=== PATIENT | female | born 1955 | race Asian ===

== ENCOUNTER 2024-07-15 14:04 | Outpatient (RCR) | payer MEDICARE, MEDICAID, SELFPAY | END 2024-08-09 23:59 | disposition home or self-care (01) | LOC: SCTC 14:04 | PROVIDERS: PCP Family Medicine; Referring Provider Family Medicine; Visit Provider Nurse Practitioner Family | DX: C50.412 Malignant neoplasm of upper-outer quadrant of left female breast (principal); Z17.0 Estrogen receptor positive status [ER+]; Z17.21 Progesterone receptor positive status; Z17.32 Human epidermal growth factor receptor 2 negative status; M81.0 Age-related osteoporosis without current pathological fracture; Z79.810 Long term (current) use of selective estrogen receptor modulators (SERMs); E04.2 Nontoxic multinodular goiter; K76.0 Fatty (change of) liver, not elsewhere classified | CPT/HCPCS: 99212; G0463 ==

== ENCOUNTER → 2024-10-15 | Outpatient (CLI) | payer OTHER, SELFPAY ==
[2024-10-15 11:24] LABS: Basophils % (Auto) 1 % (0-2.5); Eosinophils # (Auto) 0.4 Thou/mm3 (0.0-0.5); Eosinophils % (Auto) 5 % (0-10); Hematocrit 43.6 % (36.0-46.0); Hemoglobin 13.9 g/dL (12.0-16.0); Immature Granulocytes % (Auto) 1 % (0-0); Immature Granulocytes Auto 0.08 Thou/mm3 (0.00-0.00); Lymphocytes # (Auto) 1.8 Thou/mm3 (1.0-4.8); Lymphocytes % (Auto) 22 % (10-50); Mean Corpuscular HGB Conc 31.9 g/dl (31.0-37.0); Mean Corpuscular Hemoglobin 27.8 pg (25.0-35.0); Mean Corpuscular Volume 87 fL (80-100); Monocytes # (Auto) 0.5 Thou/mm3 (0.0-0.8); Monocytes % (Auto) 6 % (0-12); Neutrophils # (Auto) 5.6 Thou/mm3 (1.8-7.7); Neutrophils % (Auto) 66 % (37-80); Nucleated Red Blood Cell % 0 /100 WBC (0); Platelet Count 141 Thou/mm3 (140-440); RDW Standard Deviation 41.6 fL (36.4-46.3); White Blood Count 8.4 Thou/mm3 (3.6-11.0)
[2024-10-15 11:47] LABS: Alanine Aminotransferase 27 U/L (10-49); Albumin, Serum 3.8 gm/dL (3.4-4.8); Albumin/Globulin Ratio 1.2 (1.2-2.2); Alkaline Phosphatase 75 U/L (46-116); Anion Gap 10 (7-16); Aspartate Amino Transferase 39 U/L (0-34); BUN/Creatinine Ratio 17 Ratio (12-20); Bilirubin,Total 0.3 mg/dL (0.3-1.2); Blood Urea Nitrogen 15 mg/dL (9-23); Calcium (Corrected) 9.2 mg/dL (8.5-10.1); Carbon Dioxide 31.3 mMol/L (20.0-31.0); Chloride 101 mMol/L (98-107); Creatinine (Component) 0.9 mg/dL (0.6-1.3); Globulin 3.1 gm/dL (2.3-3.5); Glucose 86 mg/dL (74-106); Osmolality,Calculated 282 (275-295); Potassium 3.9 mMol/L (3.4-5.1); Sodium 142 mMol/L (136-145); Total Protein 6.9 gm/dL (5.7-8.2); eGFR > 60 See Note
== END | disposition home or self-care (01) ==
LOC: SCTO 10:24
PROVIDERS: PCP Family Medicine; Referring Provider Nurse Practitioner Family; Visit Provider Nurse Practitioner Family
DX: C50.412 Malignant neoplasm of upper-outer quadrant of left female breast (principal)
CPT/HCPCS: 36415; 80053; 85025

== ENCOUNTER 2024-10-16 09:50 | Outpatient (RCR) | payer OTHER, SELFPAY | END 2024-11-07 23:59 | disposition home or self-care (01) | LOC: SCTC 09:50 | PROVIDERS: PCP Family Medicine; Referring Provider Family Medicine; Visit Provider Internal Medicine Hematology & Oncology | DX: C50.412 Malignant neoplasm of upper-outer quadrant of left female breast (principal); Z17.0 Estrogen receptor positive status [ER+]; Z17.21 Progesterone receptor positive status; Z17.32 Human epidermal growth factor receptor 2 negative status; Z90.12 Acquired absence of left breast and nipple; M81.0 Age-related osteoporosis without current pathological fracture; Z79.810 Long term (current) use of selective estrogen receptor modulators (SERMs); K76.0 Fatty (change of) liver, not elsewhere classified; E04.2 Nontoxic multinodular goiter | CPT/HCPCS: 99212; G0463 ==

== ENCOUNTER → 2024-12-10 | Outpatient (CLI) | payer OTHER, SELFPAY ==
--- NOTE | 2024-12-10 | XR_ITS ---
Examination: Shoulder,left, 3 views Technique: Shoulder AP internal rotation, AP external rotation, Y view shoulder, 3 views Exam date and time :December 10, 2024 1232 hours INDICATIONS: Left shoulder pain beginning 12 years ago. FINDINGS: Significant osteopenia Advanced osteoarthritis glenohumeral joint Orthopedic screws humeral head No acute fracture IMPRESSION: Advanced osteoarthritis glenohumeral joint
== END | disposition home or self-care (01) ==
LOC: CDIM 11:51
PROVIDERS: Referring Provider Orthopaedic Surgery; Visit Provider Orthopaedic Surgery
DX: M19.012 Primary osteoarthritis, left shoulder (principal)
CPT/HCPCS: 73030

== ENCOUNTER 2024-12-30 13:00 | Outpatient (RCR) | payer OTHER, SELFPAY | END 2025-01-07 23:59 | disposition home or self-care (01) | LOC: SCTC 13:00 | PROVIDERS: PCP Family Medicine; Referring Provider Internal Medicine Hematology & Oncology; Visit Provider Internal Medicine Hematology & Oncology | DX: M81.0 Age-related osteoporosis without current pathological fracture (principal); C50.412 Malignant neoplasm of upper-outer quadrant of left female breast; Z17.0 Estrogen receptor positive status [ER+]; Z17.21 Progesterone receptor positive status; Z17.32 Human epidermal growth factor receptor 2 negative status; Z79.810 Long term (current) use of selective estrogen receptor modulators (SERMs) | CPT/HCPCS: 96372; J0897 ==

== ENCOUNTER 2025-02-12 10:39 | Outpatient (RCR) | payer OTHER, SELFPAY ==
--- NOTE | 2025-02-12 16:07 | CTCFLWUP_ITS ---
Patient: PEDRITO FITZPATRICK : 1955 Page 2 of 2 FOLLOW UP NOTE DATE OF SERVICE: 02/12/2025 NAME: PEDRITO FITZPATRICK ACCOUNT: [id number] : 1955 AGE: 69 INTERVAL HISTORY: Chief Complaint Dizziness and spinning sensation after exposure to heat, swelling in leg when walking, request for ultrasound of arm and leg, request for mammogram History of Present Illness Nanette is a patient with a history of breast cancer, non-alcoholic fatty liver disease, and osteopenia, presenting with dizziness and concerns about recent blood pressure and potassium levels. The patient recently attended a high school graduation in [place], where the temperature was 107 degrees. Following the event, she experienced dizziness, particularly when lying down, describing it as a spinning sensation. She has a history of passing out in heat. The patient reports a recent blood pressure reading of 170/95 and mentions having low potassium levels, for which she takes 20 mEq four times a day. She notes that her potassium levels fluctuate, with her last level being 3.1 in December when she received her Prolia injection. She underwent lab work two days ago but has not yet received the results. Regarding her cancer history, Nanette was diagnosed in 2015 and has been on tamoxifen since 2020, having previously been on letrozole from 2015 to 2020. She mentions decreasing platelet counts and expresses concern about potential blood clots associated with tamoxifen use, especially during travel. The patient reports leg swelling when walking and states she needs an ultrasound of her leg. The patient discusses her liver condition, including fatty liver and hepatomegaly. She has been advised to watch her diet, avoid fried foods, and eat small meals to avoid overwhelming her liver. She mentions incorporating spices like turmeric, garlic, and loretta into her diet, as well as using apple cider vinegar for weight loss. Nanette reports a history of spinal fusion in 1989 and current osteopenia in her spine, though she notes it has improved. She takes calcium 1200 mg and vitamin D3 5000 units every other day for bone health. The patient expresses a need for another mammogram and ultrasounds of her arm and leg. Medications and Supplements - Amlodipine - For blood pressure - Potassium 20 mEq four times a day - Potassium level fluctuates - Tamoxifen - Taking since 2020 - Can cause blood clots - Letrozole - Taken from 2015 to 2020 - Prolia - Last injection in December - Calcium 1200 mg - Vitamin D3 5000 units every other day - Extra vitamin D can cause headaches and increase pressure in the head Review of Systems General: Positive for dizziness. HEENT: Positive for eye issues. Cardiovascular: Positive for leg swelling with walking. Neurological: Positive for vertigo, especially when lying down. Objective: Vital Signs - Blood Pressure: 170/95 mmHg Laboratory, Imaging, and Diagnostic Test Results - Date: December 2024 - Potassium: 3.1 mEq/L (low) - Previous results: - Liver imaging (June): Mild hepatomegaly, bilateral cortical scarring - Spine imaging: Osteopenia (improved from previous) - Angiogram: Performed (date not specified) ONCOLOGY HISTORY: History of stage IIa, ER positive, AZ positive, HER-2/kaylyn negative, invasive ductal as well as invasive lobular carcinoma of left breast (11/19/2015). Currently on tamoxifen due to osteoporosis (05/06/2021?). On Prolia. Adjuvant letrozole started (01/27/2016?05/05/2021). Nonalcoholic fatty liver disease with elevated AST and ALT (11/15/2020). DIAGNOSIS: Malignant neoplasm of upper-outer quadrant of left female breast [ICD10] C50.412History of stage IIa, ER positive, AZ positive, HER-2/kaylyn negative, invasive ductal as well as invasive lobular carcinoma of left breast (11/19/2015) DATE OF DIAGNOSIS: 10/05/2015 STAGE/TNM: IIA T2 N0 M0 TREATMENT HISTORY: Care?Plan Start?Date Cycle Day Intent PROLia?60mg?every?6?months 09/22/2021 1 180 Curative?(primary) KCL?40 04/04/2022 1 1 Palliative PROLia?60mg?every?6?months 01/03/2024 1 180 Palliative HISTORY OF PRESENT ILLNESS: Ms. Fitzpatrick is at [facility]. Patient taking tamoxifen, citracal, on prolia every 6 months. Patient is tolerating these medications well without any significant side effects. Patient denies any other concerns or complaints. Patient reports good appetite and energy levels. Patient denies cough chest pain fever weight loss, dysphagia. Denies any weakness, fatigue, leg cramps. HISTORY: May iFtzpatrick is a 69-year-old [place] female with following breast cancer history. 11/19/2015: Patient had left breast partial mastectomy? 12/07/2015: Patient had left breast modified radical mastectomy? 01/27/2016: Patient was started on adjuvant letrozole. She declined adjuvant chemotherapy. Since patient had radical mastectomy adjuvant radiation is not offered. 03/19/2019: AST 60, ALT 170. 09/12/2019: AST 57, ALT 69. 09/08/2020: AST 60, ALT 88, T bili 0.4. Letrozole, glucosamine and turmeric stopped. 10/28/2020: AST 70, ALT 82, T bili 0.5. Advised her to start letrozole. 11/15/2020: CT scan of the abdomen and pelvis with IV contrast? 12/13/2020: T bili 0.7, AST 59, ALT 69, alkaline phosphatase 129. 01/24/2021: Bone density test 05/05/2021: Letrozole discontinued. Patient is started on tamoxifen 20 mg p.o. daily. 05/05/2021: Letrozole was discontinued due to osteoporosis, started on tamoxifen 20 mg, p.o. daily. Prolia was not started since patient states that she just had dental work done. 01/29/2024: CT chest with contrast 02/21/2024: Chest x-ray 02/26/2024: Ultrasound thyroid 03/07/2024: DEXA 03/24/2024: TSH 0.80, T4 is 1.57, T3 is 79 03/25/2024: Ultrasound-guided biopsy of thyroid 05/20/2024: Right breast unilateral mammogram screening OTHER MEDICAL HISTORY/CONDITIONS: F/U with dermatology for skin checks, for sun spots Hypertension FAMILY HISTORY: SOCIAL HISTORY: [employer] HISTORY: MEDICATIONS: 1. allopurinol - 300 mg 1 tab Daily 2. Aspir-81 - 81 mg Daily 3. atorvastatin - 20 mg tab Daily 4. baclofen - 10 mg 1 tab As needed 5. Calcium 600 + D(3) - 600 mg-10 mcg (400 unit) 1 tab Twice a Day 6. chlorthalidone - 25 mg 1 tab Daily 7. colchicine - 0.6 mg 1 tab Daily 8. K-Tab - 20 meq Four times a day 9. losartan - 50 mg 1 tab Daily 10. meclizine - 25 mg 1 tab Three times a day 11. montelukast - 10 mg 1 tab Daily 12. pantoprazole - 20 mg Daily 13. Pataday - 0.1 % 1 drops Twice a Day 14. Refresh Optive - 0.5-0.9 % 1 As directed 15. tamoxifen - 20 mg 1 tab one tab po q daily 16. Vitamin C - 1,000 mg 1 tab Every day before sleep 17. zinc - 1 tab Daily Medications Last Reconciled by Uzma Garvey MA on 02/12/2025 ALLERGIES: latex; betamethasone REVIEW OF SYSTEMS: A complete 14-point review of systems was performed and is negative except as noted in interval history. PHYSICAL EXAMINATION: VITAL SIGNS: Temperature?98.2, B/P?115/80, Oxygen?Saturation?96% Weight?120?lbs PAIN: 0 - No pain GENERAL APPEARANCE: Appears well, in no apparent distress, appropriately interactive. HEENT: Normocephalic, no temporal wasting, normal conjunctiva, no scleral icterus, normal hearing, lips without lesions, neck normal range of motion. CARDIOVASCULAR: Normal heart sounds PULMONARY: Normal respiratory effort, no respiratory distress or use of accessory muscles, speaking in full sentences, no tachypnea. EXTREMITIES: No cyanosis. SKIN: Normal skin appearance. NEUROLOGIC: Alert and oriented x4. PSHYCHIATRIC: Appropriate affect, mood normal, behavior normal, intact thought and speech. LABORATORY DATA: I have personally reviewed and interpreted each of the patient?s relevant lab tests, abnormal findings are below: Date 04/21/24 06/27/24 ??WHITE?BLOOD?COUNT?(Thou/mm3) 11.3?H 12.6?H ??RED?BLOOD?COUNT?(Miln/mm3) 5.05 5.09 ??HEMOGLOBIN?(gm/dl) 13.7 14.2 ??HEMATOCRIT?(%) 41.8 43.5 ??PLATELET?COUNT?(Thou/mm3) 153 126?L ??NEUTROPHILS?%,?AUTO?(%) 67 69 ??LYMPH?%,?AUTO?(%) 21 18 ??NEUTROPHILS,?AUTO?(Thou/mm3) 7.6 8.7?H ??GLUCOSE,RANDOM?(mg/dL) 98 90 ??BLOOD?UREA?NITROGEN?(mg/dL) 20 21 ??CREATININE?(mg/dL) 1.10 1.20 ??SODIUM?(mmol/L) 138 139 ??POTASSIUM?(mmol/L) 3.0?L 3.4 ??CHLORIDE?(mmol/L) 101 100 ??CrCl?(CandG)?(ml/min) 41.82 37.39 ??AST/SGOT?(Unit/L) 46?H 43?H ??ALT/SGPT?(Unit/L) 31 39 ??ALKALINE?PHOSPHATASE?(Unit/L) 80 119?H ??BILIRUBIN,?TOTAL?(mg/dL) 0.6 0.6 ??PROTEIN?TOTAL?(gm/dl) 7.7 7.4 ??ALBUMIN,?SERUM?(gm/dl) 4.2 4.1 ??GLOBULIN?(gm/dl) 3.5 3.3 ??ALBUMIN/GLOBULIN?RATIO 1.2 1.2 ??CALCIUM,?SERUM?(mg/dL) 9.9 10.6 ??CALCIUM?SERUM?(CORRECTED)?(mg/dL) 9.9 10.6?H ASSESSMENT/PLAN: 1. History of stage IIa, ER positive, AZ positive, HER-2/kaylyn negative, invasive ductal as well as invasive lobular carcinoma of left breast (11/19/2015). Adjuvant letrozole started (01/27/2016?05/05/2021), discontinued due to osteoporosis Currently on tamoxifen due to osteoporosis (05/06/2021?). DEXA, increase in lumbar and hip mineralization, 03/07/2024. Right breast unilateral mammogram due 05/2025. On Prolia and calcium twice a day. Continue tamoxifen, prolia and calcium. No clinical evidence of recurrence Assessment and Plan: Nanette, a patient with a history of breast cancer, presents with dizziness, especially when lying down, after exposure to high temperatures, and reports concerns about blood pressure, potassium levels, and liver health. Dizziness and is resolved now Assessment: Patient reports experiencing dizziness, particularly when lying down, following exposure to high temperatures (107?F) in [place]. This symptom may be related to orthostatic hypotension, given the patient's history of passing out in heat. Recent blood pressure reading was elevated at 170/95, despite being on amlodipine for hypertension management. An eye doctor suggested the dizziness might be due to a ruptured vein affecting blood pressure. The patient's history of spinal fusion in 1989 may also contribute to balance issues. Plan: - Monitor blood pressure regularly - Assess for orthostatic hypotension - Educate patient on heat safety and hydration - Consider adjusting amlodipine dosage based on blood pressure readings - Recommend ultrasound of leg to evaluate for potential vascular issues - Hypokalemia Assessment: Patient reports low potassium levels with fluctuations. Currently taking 20 mEq of potassium four times daily. Last recorded potassium level was 3.1 in December, coinciding with Prolia injection. Recent lab work was performed two days ago, but results are pending. Plan: - Review recent lab results for current potassium levels - Continue potassium supplementation as prescribed - Monitor potassium levels regularly, especially in relation to Prolia injections - Educate patient on dietary sources of potassium Breast Cancer Assessment: Patient was diagnosed with breast cancer in 2015. Currently on tamoxifen since 2020, previously on letrozole from 2015 to 2020. Tamoxifen therapy carries a risk of blood clots, especially during travel. Patient reports leg swelling with walking, suggesting possible vascular issues. Plan: - Schedule mammogram for ongoing cancer surveillance - Perform ultrasound of leg to evaluate for potential blood clots or vascular issues - Recommend compression socks for leg swelling - Educate patient on blood clot prevention during travel (walking every 2-3 hours) - Continue tamoxifen therapy as prescribed - Monitor for tamoxifen side effects and complications Non-alcoholic Fatty Liver Disease (NAFLD) Assessment: Patient has a known diagnosis of non-alcoholic fatty liver disease. Recent imaging in June showed mild hepatomegaly and bilateral cortical scarring Plan: - Reinforce dietary recommendations: avoid fried foods, limit beans and rice combinations, incorporate turmeric, garlic, and loretta - Encourage small, frequent meals - Recommend regular exercise as tolerated - Consider follow-up liver imaging to monitor disease progression Osteopenia Assessment: Patient has a history of osteopenia affecting the spine, though it has reportedly improved. Currently on calcium 1200 mg and vitamin D3 5000 units every other day. Last Prolia injection was in December. Plan: - Continue calcium and vitamin D3 supplementation as prescribed - Monitor for vitamin D toxicity symptoms (e.g., headaches, increased intracranial pressure) - Continue Prolia injections as scheduled - Consider follow-up bone density scan to assess osteopenia status Thrombocytopenia Assessment: Patient reports decreasing platelet counts. This could be a side effect of cancer treatment or indicate other underlying conditions. Plan: - Review recent complete blood count (CBC) results - Monitor platelet counts regularly - Investigate potential causes of thrombocytopenia if confirmed 3. Thyroid biopsy done on 03/25/2024, pathology nondiagnostic. TSH is 0.80, T4 is 1.57, T3 is 79, (03/17/2024). Thyroid ultrasound, bilateral thyroid nodules, consider ultrasound-guided fine- needle aspiration of complex large nodule left thyroid, 4 x 3 x 3 0.1 x 3.4 cm. Bilateral thyroid nodules with significant left thyromegaly, thyroid ultrasound recommended, CT chest with contrast, 01/29/2024. Pending referral to endocrinology. Continue following up with PCP for management CBC CMP ORDERS: Order # Description [id number] + Comprehensive Metabolic Panel - 12 + CBC with Auto Diff + CA 15-3 [id number] Bilateral + 3D Mammogram Screening [id number] Follow Up 6 Month [id number] Basic Metabolic Panel [id number] Basic Metabolic Panel RETURN TO CLINIC: BILLING AND COMPLIANCE: I reviewed external records from providers outside my specialty as summarized above. I spent a total of 50 minutes on this patient?s care on the day of their visit excluding time spent related to any billed procedures. This time includes time spent with the patient as well as time spent documenting in the medical record, reviewing patients records and tests, obtaining history, placing orders, communicating with other healthcare professionals, counseling the patient, family or caregiver, and/or care coordination for the diagnoses above. Electronically Signed by: Gage Woodruff MD T: 4:05 PM CC: Hussein?FERNANDO Mc, Cal?Andrew? PCP: Hussein Mc Referring: Hussein Mc This document was completed utilizing speech recognition software. Grammatical errors, random word insertions, pronoun errors, and incomplete sentences are an occasional consequence of this system due to software limitations, ambient noise, and hardware issues. Any formal questions or concerns about the content, text or information contained within the body of this dictation should be directly addressed to the provider for clarification.
== END 2025-03-09 23:59 | disposition home or self-care (01) ==
LOC: SCTC 10:39
PROVIDERS: PCP Family Medicine; Referring Provider Family Medicine; Visit Provider Internal Medicine Hematology & Oncology
DX: C50.412 Malignant neoplasm of upper-outer quadrant of left female breast (principal); Z17.0 Estrogen receptor positive status [ER+]; Z17.21 Progesterone receptor positive status; Z17.32 Human epidermal growth factor receptor 2 negative status; Z79.810 Long term (current) use of selective estrogen receptor modulators (SERMs); I10 Essential (primary) hypertension; E87.6 Hypokalemia; K76.0 Fatty (change of) liver, not elsewhere classified; M85.88 Other specified disorders of bone density and structure, other site; D69.6 Thrombocytopenia, unspecified
CPT/HCPCS: 99212; G0463

== ENCOUNTER → 2025-03-19 | Outpatient (CLI) | payer OTHER, SELFPAY ==
--- NOTE | 2025-03-19 09:00 | XR_ITS ---
Examination: CT left shoulder, without contrast. 2-D sagittal reconstructions. 2-D coronal reconstructions. 3-D reconstructions. Date and time of exam:March 19, 2025 0918 hours INDICATIONS: Left shoulder pain beginning 2008, work injury CTDI: vol (mGy):6.44 DLP: (mGycm):126 Technique: Multiple 1.25 mm axial sections of the left shoulder without intravenous contrast have been obtained. 2-D sagittal and coronal reconstructions have been obtained. 3-D reconstructions have been obtained. Low dose protocols were performed. One or more of the following dose reduction techniques were used; automated exposure control, adjustment of the mA and/or KV according to patient size, use of iterative reconstruction technique. Findings: Moderate narrowing glenohumeral joint Orthopedic screws clips in the femoral head Distance between the humeral head and the acromium 3.5 mm with small areas of ossification in the rotator cuff This examination is been performed without intra-articular contrast No AC joint separation No shoulder fracture or dislocation IMPRESSION: Moderate osteoarthritis glenohumeral joint Decreased distance between the humeral head and the acromium
== END | disposition home or self-care (01) ==
PROVIDERS: Referring Provider Orthopaedic Surgery; Visit Provider Orthopaedic Surgery
DX: M19.012 Primary osteoarthritis, left shoulder (principal)
CPT/HCPCS: 73200

== ENCOUNTER 2025-03-29 09:01 | Emergency (ER) | payer OTHER, MEDICAID, SELFPAY ==
[2025-03-29 09:02] VITALS: BMI 25.0
[2025-03-29 09:12] VITALS: BP 128/82; PULSE 66; RESP 18; TEMP 36.6; O2SAT 99
--- NOTE | 2025-03-29 09:22 | XR_ITS ---
Examination: Pelvic ultrasound, transabdominal, complete Technique: Transabdominal ultrasound of the pelvis performed using grayscale imaging Date and time of exam: March 29, 2025, 10:11 AM Indications: Vaginal bleeding beginning one a.m. this morning. Findings: Uterus 14.6 cm endometrial stripe 4.28 cm No discrete uterine mass Ovaries obscured by bowel gas Impression: Markedly abnormal thickened endometrial stripe, differential would include endometrial hyperplasia, malignant neoplasm of the endometrium Recommend elective MRI pelvis follow-up pre and postcontrast
--- NOTE | 2025-03-29 09:23 | PD.EDRME ---
Rapid Medical Screening Exam RME Arrival date/time: 03/29/25 09:01 69-year-old female with a history of carcinoma of the left breast, presents to the emergency room with a chief complaint of vaginal bleeding that began this morning at 1:30 in the morning. I have greeted and performed a focused initial assessment of this patient. A comprehensive ED assessment and evaluation of the patient, analysis of all test results, and completion of the medical decision making process will be conducted by additional ED providers. Chief Complaint: Vaginal Bleeding Vital signs: Vital Signs Temperature 98 F 03/29/25 09:12 Pulse Rate 66 03/29/25 09:12 Respiratory Rate 18 03/29/25 09:12 Blood Pressure 128/82 03/29/25 09:12 Pulse Oximetry (%) 99 03/29/25 09:12 Oxygen Delivery Method Room Air 03/29/25 09:12 Vital signs reviewed by provider: Yes
[2025-03-29 10:07] LABS: Collection Type, Urine Clean Catch
[2025-03-29 10:14] LABS: Bilirubin,Urine Negative (Negative); Blood,Urine 3+ (Negative); Culture Indicated,Urine Not Indicated; Glucose, Urine Negative (Negative); Ketones,Urine Negative (Negative); Leukocyte Esterase,Urine Negative (Negative); Nitrite,Urine Negative (Negative); PH,Urine 6.0 (5.0-7.0); Protein,Urine 2+ (Neg - Trace); RBC,Urine 245 /hpf (0-3); Specific Gravity,Urine 1.019 (1.001-1.035); Squamous Epithelial Cell,Urine 1 /hpf (0-5); Urobilinogen,Urine Negative mg/dL (0.0-1.0); WBC,Urine 8 /hpf (0-5)
--- NOTE | 2025-03-29 10:24 | XR_ITS ---
Examination: CT abdomen with intravenous contrast CT pelvis with intravenous contrast 2-D coronal reconstructions 2-D sagittal reconstructions Date and time of exam:March 29, 2025, 12:29 PM. Indications: Post menopausal bleeding today. CTDI: vol (mGy) 14.2 DLP: (mGycm) 171 Technique: Multiple axial sections of the abdomen and pelvis have been obtained. 64 slice high-resolution scanner used. 3 mm axial sections have been obtained, post intravenous injection 60 cc [id number]. 2-D sagittal, coronal reconstructions obtained. Low dose protocols were performed. One or more of the following dose reduction techniques were used; automated exposure control, adjustment of the mA and/or KV according to patient size, use of iterative reconstruction technique. Findings: 4 mm pulmonary nodule left lower lobe. Fatty infiltration throughout the liver. Absent gallbladder. No common bile duct stones. No pancreatic mass. Moderate renal scar formation. Aorta normal size. Diffusely enlarged uterus with markedly abnormal thickened endometrium 4.7 cm No abdominal or pelvic lymphadenopathy Moderate osteopenia Impression: Enlarged uterus with markedly abnormal thickened endometrium, highest on the differential list is malignant neoplasm of the endometrium Recommend elective MRI pelvis follow-up pre and postcontrast
--- NOTE | 2025-03-29 10:24 | PC.NURSE ---
PT IN TODAY FOR VAGINAL BLEEDING AT 0130 THIS MORNING. PT STATES THAT SHE HAS HAD TO USE PULLUPS AND HAS CHANGED THEM TWICE SINCE 0130 THIS MORNING. PT STATES THAT SHE IS POSTMENOPAUSAL AND HAS NOT HAD A PERIOD SINCE HER LATE 50'S. PT ALSO DENIES ANY TRAUMA. PT DOES STATE TO BE ON ASA DAILY. PT ALSO DESCRIBES BLEEDING DARK BROWN/BLACK. PT AWAITING TO BE SEEN BY .
[2025-03-29 10:54] LABS: Clarity,Urine Hazy (Clear/Hazy); Color,Urine Yellow (Lt Yel-Yel)
[2025-03-29 11:02] VITALS: BP 153/78; PULSE 88; RESP 18; O2SAT 99
--- NOTE | 2025-03-29 11:32 | PD.EDVAGBL ---
ED OB Contraction Preg RMI/HPI General Chief complaint: Vaginal Bleeding Stated complaint: UNUSUAL VAGINAL BLEEDING STARTED 01:30 Time Seen by Provider: 03/29/25 10:08 Arrival date/time: 03/29/25 09:01 Limitations: no limitations RME / HPI RME / HPI Narrative: 03/29/25 09:01 69-year-old female with a history of carcinoma of the left breast, presents to the emergency room with a chief complaint of vaginal bleeding that began this morning at 1:30 in the morning. I have greeted and performed a focused initial assessment of this patient. A comprehensive ED assessment and evaluation of the patient, analysis of all test results, and completion of the medical decision making process will be conducted by additional ED providers. DR. MONSERRAT CHASE ED EVALUATION 69 year old female with history of breast cancer (diagnosed in 2016, status post mastectomy and lumpectomy), hypertension, cervical fusion, and postmenopausal presents to the ED with vaginal bleeding that began early this morning. Patient reports that around 01:00?01:30 AM, she awoke with the sensation of having wet herself. States when she went to the restroom, she noted blood in her underwear described as brown to black in color. She returned to bed but was awakened again at approximately 07:30 AM, this time drenched in blood, which prompted emergency care. She also reports associated itching of the labia but denies any visible rash or lesions. She is sexually active. No history of trauma, recent procedures, or use of anticoagulant medications. Family history: Mother- cancer dx at 89 y.o. Related Data Home Medications ?Medication ?Instructions ?Recorded ?Confirmed ascorbic acid (vitamin C) 1,000 mg 1 g PO QDAY 11/22/17 07/24/19 tablet (Vitamin C) letrozole 2.5 mg tablet 2.5 mg PO QDAY 11/22/17 07/24/19 pantoprazole 20 mg tablet,delayed 20 mg PO QDAY 11/22/17 07/24/19 release potassium chloride 10 mEq 20 meq PO TID 11/22/17 07/24/19 tablet,extended release simvastatin 40 mg tablet 40 mg PO QPM 11/22/17 07/24/19 amlodipine 5 mg tablet 5 mg PO QDAY 07/24/19 07/24/19 aspirin 81 mg tablet,delayed 81 mg PO QDAY 07/24/19 07/24/19 release (Aspir-) calcium 500 mg (as 1 tab PO DAILY 07/24/19 07/24/19 carbonate)-vitamin D3 3.125 mcg (125 unit) tablet (Calcium) krill 1,000 mg-omega-3 230 mg-dha 1 cap PO QDAY 07/24/19 07/24/19 60 ms-cdh-rophyuync-astaxan capsule (MegaRed [place]-3 Krill Oil) triamterene 75 1 tab PO QDAY 07/24/19 07/24/19 mg-hydrochlorothiazide 50 mg tablet turmeric 400 mg capsule 1,000 mg PO DAILY 07/24/19 07/24/19 vit C,E,copper,zinc-plunp3m 250 1 cap PO QDAY 07/24/19 07/24/19 mg-lutein 5 mg-zeaxanthin 1 mg capsule (Ocuvite Adult 50 Plus) Previous Rx's ?Medication ?Instructions ?Recorded hydrocodone 5 mg-acetaminophen 325 1 tab PO Q6H PRN pain #40 tabs 07/28/19 mg tablet (Hewitt) triamterene 50 mg capsule 50 mg PO QDAY #30 caps 04/04/22 Allergies Allergy/AdvReac Type Severity Reaction Status Date / Time betamethasone Allergy Unknown lesions Verified 03/29/25 09:04 latex Allergy Unknown lesions Verified 03/29/25 09:04 Review of Systems Review of Systems Systems Reviewed: All systems reviewed, normal except as documented Past Medical History Past Medical History NEUROLOGIC: Positive Neurological Disorders and Transient Ischemic Attacks (TIA) CARDIAC: Positive Angina, Hypercholesterolemia, Edema and Hypertension RESPIRATORY: Positive Bronchitis and Pneumonia GASTROINTESTINAL: Positive Gastrointestinal Disorders and Gall Bladder Disease REPRODUCTIVE: Positive Breast Cancer (LEFT 2015) and Previous Pregnancies MUSCULOSKELETAL: Positive Musculoskeletal Disorders, Arthritis, Degenerative Disk Disease, Carpal Tunnel Syndrome (BILAT 1999, 2001) and Fibromyalgia ENT: Positive History of ENT Problems and Macular Degeneration (RIGHT) OTHER HISTORY: Positive Hospitalization, Falls, Blood Transfusions, Chicken Pox, Measles, Mumps, Cancer and Breast Cancer (LEFT 2015) Family History FAMILY HISTORY: Positive Family Respiratory Disorders, Family Cardiac Disorders, Family Cancer and Family Surgery Surgical History SURGICAL: Positive Angiogram, Joint Replacement, of Shoulder Sx (LEFT 2009), Knee Sx (RIGHT 2018), of Back Surgery (CERVICLE FUSION C3-5 1997), Mastectomy, Lumpectomy (LEFT 2016), Tubal Ligation and Section (1989) OTHER SURGICAL HX: LEFT MASTECTOMY 2016 Social History SMOKING STATUS: Never smoker SUBSTANCE USE: does not use ED Exam General Limitations: Present no limitations General appearance: Present alert and in no apparent distress Head Head exam: Present atraumatic, normocephalic and normal inspection Eye Eye exam: Present normal appearance, PERRL and EOMI ENT ENT exam: Present normal exam, normal oropharynx and mucous membranes moist Neck Neck exam: Present normal inspection, full ROM and trachea midline Chest Chest inspection: Present normal inspection and symmetric chest wall rise Respiratory Respiratory exam: Present normal lung sounds bilaterally Cardiovascular Cardiovascular exam: Present regular rate, normal rhythm and normal heart sounds Abdominal Exam Abdominal exam: Present soft and normal bowel sounds Extremities Exam Extremities exam: Present normal inspection and full ROM Back Exam Back exam: Present normal inspection and full ROM Neurological Exam Neurological exam: Present alert, oriented X3 and CN II-XII intact Psychiatric Psychiatric exam: Present normal affect and normal mood Skin Skin exam: Present warm, dry, intact and normal color Course Quality Measures none Orders Category Date Time Status CT Screening NOW Care 03/29/25 10:24 Active Miscellaneous Nursing Order NOW Care 03/29/25 11:[address] abdomen pelvis w con Stat Exams 03/29/25 10:24 Completed US pelvic complete Stat Exams 03/29/25 09:22 Completed CBC Stat Lab 03/29/25 11:05 Completed CMP [Comprehensive Metabolic Panel] Stat Lab 03/29/25 11:05 Completed HCG Qualitative,Urine Stat Lab 03/29/25 11:31 Ordered INR [Prothrombin Time with INR] Stat Lab 03/29/25 12:21 Completed PTT [Partial Thromboplastin Time] Stat Lab 03/29/25 12:21 Completed UA, C/S IF [Urinalysis, C/S if Indicated] Stat Lab 03/29/25 09:45 Completed Losartan [Cozaar] Med 03/29/25 11:55 Discontinued 50 mg PO X1 ONE Pantoprazole [Protonix] Med 03/29/25 11:55 Discontinued 20 mg PO X1 ONE Patient's Own Med [Patient's Own Medication] 1 ea Med 03/29/25 12:45 Discontinued Pre-Mixed Bottle [Pre-mixed Bottle] 1 btl PO X1 Potassium Chloride [K-Dur] Med 03/29/25 11:55 Discontinued 20 meq PO X1 ONE Vital Signs Vital signs: Vital Signs Temperature 98 F 03/29/25 09:12 Pulse Rate 66 03/29/25 09:12 Respiratory Rate 18 03/29/25 09:12 Blood Pressure 128/82 03/29/25 09:12 Pulse Oximetry (%) 99 03/29/25 09:12 Oxygen Delivery Method Room Air 03/29/25 09:12 Pulse ox is 99% on room air which is adequate. Vaginal Bleeding MDM Narrative MDM Narrative: Dariela Quinones am scribing for and in the presence of Dr. Nova. Patient remains clinically stable throughout the emergency department visit. We reviewed all the results, analysis, and treatment plans. Patient is amenable to discharge. Strict return precautions were outlined. Patient was discharged in stable condition. Patient data External records reviewed:: [facility] previous records (I reviewed outpatient oncologist follow up note on 02/12/2025 ) Clinical information provided by:: patient Social determinants that could affect healthcare access:: none Patient has the following chronic illnesses:: breast cancer (diagnosed in 2016, status post mastectomy and lumpectomy), hypertension, and cervical fusion How is presenting disease/condition affected by chronic disease/condition?: uneffected by Evaluation data The following diagnostics were reviewed and interpreted by me:: lab results and radiology exam(s) Lab and/or radiology exams considered but not ordered:: None Interpretation Summary: Ordering Physician: Drew Sanderson Date of Service: 03/29/25 Procedure(s): US pelvic complete Accession Number(s): [id number] cc: Drew Sanderson; Anibal Smith MD; Lamin Soto SR~ Examination: Pelvic ultrasound, transabdominal, complete Technique: Transabdominal ultrasound of the pelvis performed using grayscale imaging Date and time of exam: March 29, 2025, 10:11 AM Indications: Vaginal bleeding beginning one a.m. this morning. Findings: Uterus 14.6 cm endometrial stripe 4.28 cm No discrete uterine mass Ovaries obscured by bowel gas Impression: Markedly abnormal thickened endometrial stripe, differential would include endometrial hyperplasia, malignant neoplasm of the endometrium Recommend elective MRI pelvis follow-up pre and postcontrast Dictated By: Anibal Smith MD Signed By: <Electronically signed by Anibal Smith MD in OV> 03/29/25 1114 Ordering Physician: Zak Nova MD Date of Service: 03/29/25 Procedure(s): CT abdomen pelvis w con Accession Number(s): [id number] cc: Anibal Smith MD; Zak Nova MD; Lamin Soto SR~ Examination: CT abdomen with intravenous contrast CT pelvis with intravenous contrast 2-D coronal reconstructions 2-D sagittal reconstructions Date and time of exam:March 29, 2025, 12:29 PM. Indications: Post menopausal bleeding today. CTDI: vol (mGy) 14.2 DLP: (mGycm) 171 Technique: Multiple axial sections of the abdomen and pelvis have been obtained. 64 slice high-resolution scanner used. 3 mm axial sections have been obtained, post intravenous injection 60 cc [id number]. 2-D sagittal, coronal reconstructions obtained. Low dose protocols were performed. One or more of the following dose reduction techniques were used; automated exposure control, adjustment of the mA and/or KV according to patient size, use of iterative reconstruction technique. Findings: 4 mm pulmonary nodule left lower lobe. Fatty infiltration throughout the liver. Absent gallbladder. No common bile duct stones. No pancreatic mass. Moderate renal scar formation. Aorta normal size. Diffusely enlarged uterus with markedly abnormal thickened endometrium 4.7 cm No abdominal or pelvic lymphadenopathy Moderate osteopenia Impression: Enlarged uterus with markedly abnormal thickened endometrium, highest on the differential list is malignant neoplasm of the endometrium Recommend elective MRI pelvis follow-up pre and postcontrast Dictated By: Anibal Smith MD Signed By: <Electronically signed by Anibal Smith MD in OV> 03/29/25 1304 Medications / Prescriptions Medications or Prescriptions considered but not ordered:: None Medication administrations:: Medication Administration History Discontinued Medications Tamoxifen 20 Mg (Tablet) 0 ea PO X1 ONE Stop: 03/29/25 12:46 Last Admin: 03/29/25 12:45 Dose: 1 tablet Documented By: LUZ MARIA Losartan Potassium (Losartan Potassium 25 Mg Tablet) 50 mg PO X1 ONE Stop: 03/29/25 11:56 Last Admin: 03/29/25 12:45 Dose: 50 mg Documented By: LUZ MARIA Pantoprazole Sodium (Pantoprazole 20 Mg Tablet) 20 mg PO X1 ONE Stop: 03/29/25 11:56 Last Admin: 03/29/25 12:45 Dose: 20 mg Documented By: LUZ MARIA Potassium Chloride (Potassium Chloride 20 Meq Tabcr) 20 meq PO X1 ONE Stop: 03/29/25 11:56 Last Admin: 03/29/25 12:46 Dose: 20 meq Documented By: LUZ MARIA See above Consultations Consultation(s) initiated? (list below): No Diagnosis Vaginal Bleeding Differential Diagnosis: dysfunctional uterine bleeding, vaginal bleeding and other (cervical cancer ) Most likely diagnosis given after review of the tests above:: abnormal vaginal bleeding in postmenopausal woman Admission Indicated Admission indicated?: not indicated Admission Request Was there a request for admission?: No Disposition Plan Disposition Plan: Discharge Discharge Attestation Discharge Attestation: The patient and all family members were given an opportunity to ask questions and understood the discharge instructions. Discharge instructions specifically effects, indications for sooner follow up or return to the emergency department, and the expected course of current diagnosis. Patient condition: Stable Discharge Plan Plan Patient Disposition: HOME (Self Care) Discharge Disposition comment: Stable for discharge home Patient condition on transfer: Stable Prescriptions/Referrals Prescriptions/Med Rec: No Action ascorbic acid (vitamin C) [Vitamin C] 1,000 mg Tablet 1 g PO QDAY simvastatin 40 mg Tablet 40 mg PO QPM letrozole 2.5 mg Tablet 2.5 mg PO QDAY pantoprazole 20 mg Tablet,Delayed Release (Dr/Ec) 20 mg PO QDAY potassium chloride 10 mEq Tablet Extended Release 20 meq PO TID amlodipine 5 mg Tablet 5 mg PO QDAY aspirin [Aspir-81] 81 mg Tablet,Delayed Release (Dr/Ec) 81 mg PO QDAY triamterene-hydrochlorothiazid 75-50 mg Tablet 1 tab PO QDAY calcium carbonate-vitamin D3 [Calcium 500 + D (D3)] 500 mg(1,250mg) -125 unit Tablet 1 tab PO DAILY Ocuvite Adult 50 Plus 250-5-1 mg Capsule 1 cap PO QDAY brwmw-ou-5-mht-ewm-mkeqvit-ast [MegaRed [place]-3 Krill Oil] 1,000-230-60 mg Capsule 1 cap PO QDAY turmeric 400 mg Capsule 1,000 mg PO DAILY hydrocodone-acetaminophen [Hewitt] 5-325 mg tablet 1 tab PO Q6H MDD 6 PRN (Reason: pain) Qty: 40 0RF triamterene 50 mg capsule 50 mg PO QDAY Qty: 30 0RF Referrals: Lamin Soto, STUDENT RE [Primary Care Provider] - In 1 week Problem List Clinical Impression: Abnormal vaginal bleeding in postmenopausal patient Patient/Caregiver Discharge Instructions Discharge Activity: activity as tolerated Diet Instructions: No diet restrictions Education Materials: ED Dysfunctional Uterine Bleeding Additional Instructions: Today you were seen in the emergency department for new onset vaginal bleeding. All of your blood work appears very reassuring, your vital signs are stable and normal as well. You do not have a urinary tract infection. We performed an ultrasound of your abdomen as well as a CT scan of your abdomen and pelvis. These found that you have abnormal uterine enlargement with enlarged endometrium. There are multiple things that could be causing your symptoms but one of them is a type of cancer. It is very important that you follow-up with Dr. Woodruff within the next several days. Also you should follow-up with your primary care doctor within the next several days If you have any worsening please return to the ER right away and we will help you. Print Language: German Stand Alone Forms: [employer] Award Info., Patient Portal Info Letter
[2025-03-29 11:40] LABS: Basophils # (Auto) 0.1 Thou/mm3 (0.0-0.2); Basophils % (Auto) 0 % (0-2.5); Eosinophils # (Auto) 0.6 Thou/mm3 (0.0-0.5); Eosinophils % (Auto) 4 % (0-10); Hematocrit 39.8 % (36.0-46.0); Hemoglobin 13.3 g/dL (12.0-16.0); Immature Granulocytes Auto 0.13 Thou/mm3 (0.00-0.00); Lymphocytes # (Auto) 2.8 Thou/mm3 (1.0-4.8); Lymphocytes % (Auto) 18 % (10-50); Mean Corpuscular HGB Conc 33.4 g/dl (31.0-37.0); Mean Corpuscular Hemoglobin 28.5 pg (25.0-35.0); Mean Corpuscular Volume 85 fL (80-100); Monocytes # (Auto) 0.9 Thou/mm3 (0.0-0.8); Monocytes % (Auto) 6 % (0-12); Neutrophils # (Auto) 11.3 Thou/mm3 (1.8-7.7); Neutrophils % (Auto) 72 % (37-80); Nucleated Red Blood Cell # 0.00 Thou/mm3 (0.00-0.00); Nucleated Red Blood Cell % 0 /100 WBC (0); Platelet Count 133 Thou/mm3 (140-440); RDW Standard Deviation 43.5 fL (36.4-46.3); Red Blood Count 4.67 Miln/mm3 (4.00-5.20); White Blood Count 15.8 Thou/mm3 (3.6-11.0)
[2025-03-29 11:53] LABS: Alanine Aminotransferase 22 U/L (10-49); Albumin, Serum 4.5 gm/dL (3.4-4.8); Albumin/Globulin Ratio 1.3 (1.2-2.2); Alkaline Phosphatase 61 U/L (46-116); Anion Gap 13 (7-16); Aspartate Amino Transferase 33 U/L (0-34); BUN/Creatinine Ratio 13 Ratio (12-20); Bilirubin,Total 0.7 mg/dL (0.3-1.2); Blood Urea Nitrogen 15 mg/dL (9-23); Calcium 9.4 mg/dL (8.3-10.6); Calcium (Corrected) 9.4 mg/dL (8.5-10.1); Carbon Dioxide 24.7 mMol/L (20.0-31.0); Chloride 101 mMol/L (98-107); Creatinine (Component) 1.2 mg/dL (0.6-1.3); Estimated Creatinine Clearance 31.9 mL/min (>60); Globulin 3.4 gm/dL (2.3-3.5); Glucose 90 mg/dL (74-106); Osmolality,Calculated 278 (275-295); Potassium 3.7 mMol/L (3.4-5.1); Sodium 139 mMol/L (136-145); Total Protein 7.9 gm/dL (5.7-8.2); eGFR 49 See Note
[2025-03-29 12:14] VITALS: BP 136/83; PULSE 81; RESP 16; TEMP 37; O2SAT 98
[2025-03-29 12:42] LABS: INR 1.1 (0.9-1.3); Partial Thromboplastin Time 29.9 Seconds (22.0-36.0); Prothrombin Time 12.4 Seconds (9.0-12.2)
[2025-03-29 12:45] VITALS: BP 136/83; PULSE 82
[2025-03-29] MEDS: LOSARTAN POTASSIUM 25 MG TABLET 50 MG PO (12:45)
[2025-03-29] MEDS: PANTOPRAZOLE 20 MG TABLET PO (12:45)
[2025-03-29] MEDS: TAMOXIFEN 20 MG PO (12:45)
[2025-03-29 14:23] VITALS: BP 135/97; PULSE 95; O2SAT 98
== END 2025-03-29 14:24 | disposition home or self-care (01) ==
PROVIDERS: Nurse Practitioner Family; Emergency Provider Emergency Medicine
DX: N95.0 Postmenopausal bleeding (principal); R93.89 Abnormal findings on diagnostic imaging of other specified body structures
CPT/HCPCS: 36415; 74177; 76856; 80053; 81001; 81025; 85025; 85610; 85730; 99283; A4649; Q9967; A9270

== ENCOUNTER 2025-04-09 08:03 | Outpatient (RCR) | payer OTHER, MEDICAID, SELFPAY | END 2025-04-09 23:59 | disposition home or self-care (01) | LOC: SCTC 08:03 | PROVIDERS: PCP Family Medicine; Referring Provider Family Medicine; Visit Provider Internal Medicine Hematology & Oncology | DX: C50.412 Malignant neoplasm of upper-outer quadrant of left female breast (principal); Z17.0 Estrogen receptor positive status [ER+]; Z17.21 Progesterone receptor positive status; Z17.32 Human epidermal growth factor receptor 2 negative status; Z90.12 Acquired absence of left breast and nipple; Z79.810 Long term (current) use of selective estrogen receptor modulators (SERMs); M81.0 Age-related osteoporosis without current pathological fracture; R42 Dizziness and giddiness; E87.6 Hypokalemia; K76.0 Fatty (change of) liver, not elsewhere classified; M85.88 Other specified disorders of bone density and structure, other site; D69.6 Thrombocytopenia, unspecified | CPT/HCPCS: 36415 ==

== ENCOUNTER → 2025-04-13 | Outpatient (CLI) | payer OTHER, SELFPAY ==
--- NOTE | 2025-04-13 07:00 | XR_ITS ---
MRI shoulder, right, without contrast. Date and time: April 13, 2025, 0714 hours INDICATIONS: Injury to the shoulder 15 years ago with persistent shoulder pain, decreased range of motion, 50% abduction, joint collecting Technique: Multiple axial, sagittal and coronal sections of the shoulder have been obtained. Siemens high-resolution 1.5 Monika MRI scanner is utilized. Axial fat-suppressed sections, TR 2350, TE 18 T2-weighted coronal fat-saturated images, TR 3500, TE 7100 T1-weighted coronal images, TR 500, TE 15 T2-weighted sagittal fat-saturated images, TR 3500, TE 57 T1-weighted sagittal sections, TR 504, TE 13. Findings: 15 mm full-thickness rotator cuff tear Subscapularis insertion is intact. Subscapularis bursa is not seen. Long head of the biceps is in the bicipital groove. No definite tear of the biceps superior labral anchor is seen. Retraction of the musculotendinous junction of the rotator cuff is mild. Tendinosis pattern is moderate. Distance between the acromium and humeral head is 4.5 mm Atrophy of the supraspinatus muscle is severe. Atrophy of the infraspinatus muscle is moderate. Sagittal sections demonstrate a horizontal acromion. Acromioclavicular joint demonstrates moderate osteoarthritis. Osacromiale is not identified. Anterior superior labral tears. Bony glenoid fossa on the sagittal sections does not demonstrate osseous defect. Occult fracture or area of avascular necrosis is not seen. Acromioclavicular joint separation is not visible. Defect in the posterolateral margin of the humeral head is not seen Impression: 15 mm full-thickness rotator cuff tear Anterior superior labral tears
== END | disposition home or self-care (01) ==
LOC: SMRI 06:36
PROVIDERS: PCP Family Medicine; Referring Provider Orthopaedic Surgery; Visit Provider Orthopaedic Surgery
DX: M75.101 Unspecified rotator cuff tear or rupture of right shoulder, not specified as traumatic (principal); S43.431A Superior glenoid labrum lesion of right shoulder, initial encounter; X58.XXXA Exposure to other specified factors, initial encounter
CPT/HCPCS: 73221

== ENCOUNTER 2025-06-22 08:23 | Outpatient (AMB) | payer OTHER, SELFPAY ==
[2025-06-22 08:34] VITALS: BP 131/78; PULSE 84; RESP 16; TEMP 36.6; O2SAT 97; BMI 27.8
--- NOTE | 2025-06-22 08:34 | AMB.GYNCLNOT ---
Vital Signs 06/22/25 08:34 Height 1.45 m Height Method Stated Weight 58.23 kg Weight Measurement Method Standing Scale BMI 27.8 BP 131/78 H Blood Pressure Source Automatic Cuff Blood Pressure Location Left Upper Arm Position Sitting Respiration 16 Pulse 84 Pulse Source Monitor Temp 97.8 F Temp Source Oral Pulse Oximetry (%) 97 Oxygen Delivery Method Room Air Allergies/Home Meds Allergies & Medications Allergies betamethasone Allergy (Unknown, Verified 06/22/25 08:38) lesions latex Allergy (Unknown, Verified 06/22/25 08:38) lesions Medication Reconciliation ascorbic acid (vitamin C) 1,000 mg tablet (Vitamin C) 1 g PO QDAY 11/22/17 [History Confirmed 06/22/25] pantoprazole 20 mg tablet,delayed release 20 mg PO QDAY 11/22/17 [History Confirmed 06/22/25] potassium chloride 10 mEq tablet,extended release 20 meq PO TID 11/22/17 [History Confirmed 06/22/25] calcium 500 mg (as carbonate)-vitamin D3 3.125 mcg (125 unit) tablet (Calcium) 1 tab PO DAILY 07/24/19 [History Confirmed 06/22/25] turmeric 400 mg capsule 1,000 mg PO DAILY 07/24/19 [History Confirmed 06/22/25] vit C,E,copper,zinc-auigo6g 250 mg-lutein 5 mg-zeaxanthin 1 mg capsule (Ocuvite Adult 50 Plus) 1 cap PO QDAY 07/24/19 [History Confirmed 06/22/25] triamterene 50 mg capsule 50 mg PO QDAY #30 caps 04/04/22 [Rx Confirmed 06/22/25] atorvastatin 20 mg tablet (Lipitor) 20 mg PO QDAY 06/22/25 [History Confirmed 06/22/25] estradiol 0.01% (0.1 mg/gram) vaginal cream 1 g vaginal QDAY 30 days #42.5 grams 06/22/25 [Rx] losartan 50 mg tablet 50 mg PO QDAY 06/22/25 [History Confirmed 06/22/25] montelukast 10 mg tablet 10 mg PO QPM 06/22/25 [History Confirmed 06/22/25] tamoxifen 20 mg tablet 20 mg PO QDAY 06/22/25 [History Confirmed 06/22/25] Intake Visit Data Collection New Patient or Established: Established Patient (seen at [facility] within 3 years) Reason for Visit:: POST MENOPAUSAL BLEEDING SINCE MARCH Seen by Clinical Staff ONLY (RN/MA): No Adhesive Sprayer Required: No Do You Feel Safe at Home: Yes Authorities Contacted: N/A PCP or OBGYN visit in last 3 months: Yes Hx Now: No Are you currently on any form of Control: No Pain Present Currently: No Pain Scale Used: Victor-Sanchez/Numerical Pain scale:: 0 Smoking Status Smoking Status: Never smoker 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 Menopausal: Yes If menopausal, at what age did it occur: 54 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 1. Little interest or pleasure in doing things: not at all 2. Feeling down, depressed, or hopeless: not at all Total score: 0 PHQ-9 3. Trouble falling or staying asleep, or sleeping too much: Not at all 4. Feeling tired or having little energy: Not at all 5. Poor appetite or overeating: Not at all 6. Feeling bad about yourself - or that you are a failure or have let yourself or your family down: Not at all 7. Trouble concentrating on things, such as reading the newspaper or watching television: Not at all 8. Moving or speaking so slowly that other people could have noticed? - Or the opposite - being so fidgety or restless that you have been moving around a lot more than usual: not at all 9. Thoughts that you would be better off or of hurting yourself in some way: Not at all Total score: 0 Source: Developed by Drs. Mikael Rosales, Ely Ordoñez, Yaron Gross and colleagues, with an educational ky from [employer]. Depression screen completed yes Social History Living Situation History Marital Status: Lives With: Family Housing: House Tobacco History Smoking Status: Never smoker Second Hand Smoke Exposure: No Alcohol History Alcohol Intake: Current Alcohol Intake Frequency: holidays/special occasions only Domestic Abuse History Do You Feel Safe at Home: Yes History of Present Illness HPI Narrative Menopause symptoms Leila Fitzpatrick is a 69-year-old presenting for menopause symptoms. She had one episode of post-menopausal bleeding in October 2019. She has a history of breast cancer with left mastectomy and is 2 para 2 with a history of 2 C-sections. Medical History: - History of breast cancer with left mastectomy Surgical History: - Left mastectomy for breast cancer - Two sections Obstetric History: - GPAL: A0 L2 - History of 2 sections Exam General General Appearance: alert, in no apparent distress and healthy appearing Head Head exam: atraumatic Neck Neck exam: Present normal inspection and trachea midline Chest Chest inspection: Present normal inspection and symmetric chest wall rise External exam: Present normal external exam; Absent tenderness Neuro Neurological exam: Present oriented X3 Psych Psychiatric exam: Present normal affect and normal mood Office Procedures [facility] Clinic LOC & Office Proc's Nursing/Assessment Patient Status: Established Patient OB Clinic Nursing Assessment: Medication Reconciliation, Update PMH in EMR and Vital Signs OB Clinic Coordination of Care: Complex Care and Chronic Disease 1-5, Consent,records obtained, informed consent, Education Simp Pt/Fam, 1 Ins Authorization, Lab and Imaging orders, Results/Orders obtained and Staff clarify orders Established Patient Charge Established Patient Point Assignment: 120 Established Patient Point Charge: EP Level 4 (120-155) Assessment & Plan Diagnosis / Problem List (1) Atrophic vaginitis: Status: Acute (2) Postmenopausal bleeding: Status: Acute Plan Menopause symptoms Assessment: 69-year-old female presenting for evaluation of menopause symptoms. Patient has significant gynecologic history including one episode of postmenopausal bleeding in October 2019. She is 2 para 2 with history of two sections. Additional relevant medical history includes breast cancer treated with left mastectomy. Plan: - Prescription to be sent to [facility] by [facility] - Planned endometrial biopsy under anesthesia to r/o endometrial cancer - R/B/A discussed with patient. Advanced Care Planning Advance care planning discussed with:: patient
== END 2025-06-22 08:58 | disposition home or self-care (01) ==
LOC: HODSOBC 08:23
PROVIDERS: PCP Family Medicine; Referring Provider Family Medicine; Supervising Provider Obstetrics & Gynecology; Visit Provider Obstetrics & Gynecology
DX: N95.0 Postmenopausal bleeding (principal); N95.2 Postmenopausal atrophic vaginitis; I10 Essential (primary) hypertension; Z85.3 Personal history of malignant neoplasm of breast; Z79.899 Other long term (current) drug therapy; Z88.8 Allergy status to other drugs, medicaments and biological substances; Z91.040 Latex allergy status
CPT/HCPCS: 99214; G0463

== ENCOUNTER 2025-06-29 09:47 | Outpatient (RCR) | payer OTHER, SELFPAY | END 2025-07-10 23:59 | disposition home or self-care (01) | LOC: SCTC 09:47 | PROVIDERS: PCP Family Medicine; Referring Provider Internal Medicine Hematology & Oncology; Visit Provider Internal Medicine Hematology & Oncology | DX: M85.88 Other specified disorders of bone density and structure, other site (principal); C50.412 Malignant neoplasm of upper-outer quadrant of left female breast; Z79.810 Long term (current) use of selective estrogen receptor modulators (SERMs); Z17.0 Estrogen receptor positive status [ER+]; Z17.21 Progesterone receptor positive status; Z17.32 Human epidermal growth factor receptor 2 negative status; Z90.12 Acquired absence of left breast and nipple; E87.6 Hypokalemia; K76.0 Fatty (change of) liver, not elsewhere classified; D69.6 Thrombocytopenia, unspecified | CPT/HCPCS: 96372; J0897 ==

== ENCOUNTER → 2025-07-20 | Outpatient (CLI) | payer OTHER, SELFPAY ==
--- NOTE | 2025-07-20 10:45 | XR_ITS ---
Examination: Screening digital mammography, unilateral right Computer aided detection 3-D breast Tomosynthesis, unilateral Date and time of exam: July 20, 2025, 1023 hours, compared to mammograms dating to October 07, 2019 Indication: Screening Technique: Nonmagnified MLO, CC views of the right breast to been obtained, reconstructed from 3-D Tomosynthesis images. R2 computer aided detection program utilized for evaluation of suspicious masses and/or abnormal calcifications. 3-D Tomosynthesis images obtained. Findings: The breast is heterogeneously dense, which may obscure small masses Benign calcifications No interval suspicious mass Impression: BI-RADS category II Benign findings Recommend 1 year follow-up mammogram.
== END | disposition home or self-care (01) ==
LOC: CDIM 09:59
PROVIDERS: PCP Family Medicine; Referring Provider Internal Medicine Hematology & Oncology; Visit Provider Internal Medicine Hematology & Oncology
DX: Z12.31 Encounter for screening mammogram for malignant neoplasm of breast (principal); R92.323 Mammographic fibroglandular density, bilateral breasts; R92.1 Mammographic calcification found on diagnostic imaging of breast; C50.412 Malignant neoplasm of upper-outer quadrant of left female breast
CPT/HCPCS: 77063; 77067

== ENCOUNTER 2025-07-29 09:10 | Outpatient (AMB) | payer OTHER, SELFPAY ==
[2025-07-29 09:35] VITALS: BP 125/76; PULSE 83; RESP 18; TEMP 36.2; O2SAT 98; BMI 26.8
--- NOTE | 2025-07-29 09:35 | AMB.GYNCLNOT ---
Vital Signs 07/29/25 09:35 Height 1.45 m Height Method Stated Weight 56.472 kg Weight Measurement Method Standing Scale BMI 26.8 BP 125/76 Blood Pressure Source Automatic Cuff Blood Pressure Location Left Upper Arm Position Sitting Respiration 18 Pulse 83 Pulse Source Monitor Temp 97.2 F Temp Source Oral Pulse Oximetry (%) 98 Oxygen Delivery Method Room Air Allergies/Home Meds Allergies & Medications Allergies betamethasone Allergy (Unknown, Verified 07/29/25 09:36) lesions latex Allergy (Unknown, Verified 07/29/25 09:36) lesions Medication Reconciliation ascorbic acid (vitamin C) 1,000 mg tablet (Vitamin C) 1 g PO QDAY 11/22/17 [History Confirmed 07/29/25] pantoprazole 20 mg tablet,delayed release 20 mg PO QDAY 11/22/17 [History Confirmed 07/29/25] potassium chloride 10 mEq tablet,extended release 20 meq PO TID 11/22/17 [History Confirmed 07/29/25] calcium 500 mg (as carbonate)-vitamin D3 3.125 mcg (125 unit) tablet (Calcium) 1 tab PO DAILY 07/24/19 [History Confirmed 07/29/25] turmeric 400 mg capsule 1,000 mg PO DAILY 07/24/19 [History Confirmed 07/29/25] vit C,E,copper,[id number] 250 mg-lutein 5 mg-zeaxanthin 1 mg capsule (Ocuvite Adult 50 Plus) 1 cap PO QDAY 07/24/19 [History Confirmed 07/29/25] triamterene 50 mg capsule 50 mg PO QDAY #30 caps 04/04/22 [Rx Confirmed 07/29/25] atorvastatin 20 mg tablet (Lipitor) 20 mg PO QDAY 06/22/25 [History Confirmed 07/29/25] estradiol 0.01% (0.1 mg/gram) vaginal cream 1 g vaginal QDAY 30 days #42.5 grams 06/22/25 [Rx Confirmed 07/29/25] losartan 50 mg tablet 50 mg PO QDAY 06/22/25 [History Confirmed 07/29/25] montelukast 10 mg tablet 10 mg PO QPM 06/22/25 [History Confirmed 07/29/25] tamoxifen 20 mg tablet 20 mg PO QDAY 06/22/25 [History Confirmed 07/29/25] Intake Visit Data Collection New Patient or Established: Established Patient (seen at [facility] within 3 years) Reason for Visit:: EMB Seen by Clinical Staff ONLY (RN/MA): No Business Operations Analyst Required: No Do You Feel Safe at Home: Yes Authorities Contacted: N/A PCP or OBGYN visit in last 3 months: Yes Date of Last PCP or OBGYN visit: 06/22/25 Hx Now: No Are you currently on any form of Control: No Pain Present Currently: No Pain Scale Used: Victor-Sanchez/Numerical Pain scale:: 0 Smoking Status Smoking Status: Never smoker Immunizations Flu Vaccine in the Last 12 Months: Yes Date of most recent flu vaccination: 06/29/25 Flu Vaccine Exclusion Criteria: Already Received 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 Menstrual regularity: regular Flow: normal Monthly: No Currently sexually active: No 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 1. Little interest or pleasure in doing things: not at all 2. Feeling down, depressed, or hopeless: not at all Total score: 0 PHQ-9 3. Trouble falling or staying asleep, or sleeping too much: Not at all 4. Feeling tired or having little energy: Not at all 5. Poor appetite or overeating: Not at all 6. Feeling bad about yourself - or that you are a failure or have let yourself or your family down: Not at all 7. Trouble concentrating on things, such as reading the newspaper or watching television: Not at all 8. Moving or speaking so slowly that other people could have noticed? - Or the opposite - being so fidgety or restless that you have been moving around a lot more than usual: not at all 9. Thoughts that you would be better off or of hurting yourself in some way: Not at all Total score: 0 If you checked off any problems, how difficult have these problems made it for you to do your work, take care of things at home, or get along with other people?: not difficult at all Source: Developed by Drs. Mikael Rosales, Ely Ordoñez, Yaron Gross and colleagues, with an educational ky from [employer]. Depression screen completed yes Social History Living Situation History Lives With: Family Housing: House Tobacco History Smoking Status: Never smoker Second Hand Smoke Exposure: No Alcohol History Alcohol Intake: Current Alcohol Intake Frequency: holidays/special occasions only Domestic Abuse History Do You Feel Safe at Home: Yes History of Present Illness HPI Narrative Leila Fitzpatrick presents for an endometrial biopsy procedure. The patient had recently undergone cervical preparation with medication that opens the cervix, which she was informed would cause some tissue to come out and could cause diarrhea. She reported taking all prescribed medications as directed. The patient mentioned having a recent mammogram performed on July 20 and had a previous appointment with Dr. Petersen yesterday prior to today's visit with Dr. Lemon. The patient is taking multiple medications. ROS: Gastrointestinal: Positive for diarrhea. Exam General General Appearance: alert, in no apparent distress and healthy appearing Head Head exam: atraumatic Neck Neck exam: Present normal inspection and trachea midline Chest Chest inspection: Present normal inspection and symmetric chest wall rise External exam: Present normal external exam; Absent tenderness Neuro Neurological exam: Present oriented X3 Psych Psychiatric exam: Present normal affect and normal mood Office Procedures OBC Clinic LOC & Office Proc's Nursing/Assessment Patient Status: Established Patient OB Clinic Nursing Assessment: Medication Reconciliation, Update PMH in EMR and Vital Signs OB Clinic Coordination of Care: Consent,records obtained, informed consent, Education Simp Pt/Fam, Lab and Imaging orders, Results/Orders obtained and Staff clarify orders Established Patient Charge Established Patient Point Assignment: 80 Established Patient Point Charge: EP Level 3 (80-115) Assessment & Plan Diagnosis / Problem List (1) Postmenopausal bleeding: Status: Acute Plan Endometrial Biopsy Procedure: - Successfully performed using pipelle technique with cervical preparation medication. - Cervical preparation effectively opened cervix, allowing spontaneous expulsion of retained endometrial tissue layer. - Procedure completed without anesthesia as no sharp instruments were required. - Patient tolerated procedure well with minimal discomfort. Plan: - Endometrial tissue specimen obtained and sent for pathological analysis. - Biopsy results expected in 4-5 days. - Call patient with pathology results once available. - Patient counseled to expect bleeding for 1-2 days post-procedure, which should resolve as endometrial layer was expelled. Advanced Care Planning Advance care planning discussed with:: patient OBGYN: Biopsy/Excision/Destruc Consent Obtained Yes Time Out Performed Yes Biopsy Performed Biopsy performed: Endometrium Excision of Subcutenous Lesion Excision of Subcutenous lesion: No Procedure notes: Pre-op diagnosis general: Endometrial hyperplasia Post-op diagnosis procedure note: Same
== END 2025-07-29 09:48 | disposition home or self-care (01) ==
LOC: HODSOBC 09:10
PROVIDERS: Supervising Provider Obstetrics & Gynecology; Visit Provider Obstetrics & Gynecology
DX: N85.00 Endometrial hyperplasia, unspecified (principal); N95.0 Postmenopausal bleeding; Z91.040 Latex allergy status; Z88.8 Allergy status to other drugs, medicaments and biological substances
CPT/HCPCS: 58100; 99213; G0463

== ENCOUNTER 2025-08-13 11:00 | Outpatient (RCR) | payer OTHER, SELFPAY | END 2025-09-09 23:59 | disposition home or self-care (01) | LOC: SCTC 11:00 | PROVIDERS: PCP Orthopaedic Surgery; Referring Provider Orthopaedic Surgery; Visit Provider Nurse Practitioner Family | DX: C50.412 Malignant neoplasm of upper-outer quadrant of left female breast (principal); Z17.0 Estrogen receptor positive status [ER+]; Z17.21 Progesterone receptor positive status; Z17.32 Human epidermal growth factor receptor 2 negative status; Z79.810 Long term (current) use of selective estrogen receptor modulators (SERMs); M81.0 Age-related osteoporosis without current pathological fracture; Z90.12 Acquired absence of left breast and nipple; D64.9 Anemia, unspecified; E87.6 Hypokalemia; R91.8 Other nonspecific abnormal finding of lung field; Z86.2 Personal history of diseases of the blood and blood-forming organs and certain disorders involving the immune mechanism | CPT/HCPCS: 99212; G0463 ==

== ENCOUNTER 2025-08-14 09:38 | Outpatient (AMB) | payer OTHER, SELFPAY ==
--- NOTE | 2025-08-14 09:54 | AMB.GYNCLNOT ---
Allergies/Home Meds Allergies & Medications Allergies betamethasone Allergy (Unknown, Verified 08/14/25 09:55) lesions latex Allergy (Unknown, Verified 08/14/25 09:55) lesions Medication Reconciliation ascorbic acid (vitamin C) 1,000 mg tablet (Vitamin C) 1 g PO QDAY 11/22/17 [History Confirmed 08/14/25] pantoprazole 20 mg tablet,delayed release 20 mg PO QDAY 11/22/17 [History Confirmed 08/14/25] potassium chloride 10 mEq tablet,extended release 20 meq PO TID 11/22/17 [History Confirmed 08/14/25] calcium 500 mg (as carbonate)-vitamin D3 3.125 mcg (125 unit) tablet (Calcium) 1 tab PO DAILY 07/24/19 [History Confirmed 08/14/25] turmeric 400 mg capsule 1,000 mg PO DAILY 07/24/19 [History Confirmed 08/14/25] vit C,E,copper,zinc-[id number] 250 mg-lutein 5 mg-zeaxanthin 1 mg capsule (Ocuvite Adult 50 Plus) 1 cap PO QDAY 07/24/19 [History Confirmed 08/14/25] triamterene 50 mg capsule 50 mg PO QDAY #30 caps 04/04/22 [Rx Confirmed 08/14/25] atorvastatin 20 mg tablet (Lipitor) 20 mg PO QDAY 06/22/25 [History Confirmed 08/14/25] estradiol 0.01% (0.1 mg/gram) vaginal cream 1 g vaginal QDAY 30 days #42.5 grams 06/22/25 [Rx Confirmed 08/14/25] losartan 50 mg tablet 50 mg PO QDAY 06/22/25 [History Confirmed 08/14/25] montelukast 10 mg tablet 10 mg PO QPM 06/22/25 [History Confirmed 08/14/25] tamoxifen 20 mg tablet 20 mg PO QDAY 06/22/25 [History Confirmed 08/14/25] Intake Visit Data Collection New Patient or Established: Established Patient (seen at [facility] within 3 years) Reason for Visit:: BX results Consent obtained for Telemed Visit: Yes Seen by Clinical Staff ONLY (RN/MA): No Event Technician Required: No Do You Feel Safe at Home: Yes Authorities Contacted: N/A PCP or OBGYN visit in last 3 months: Yes Date of Last PCP or OBGYN visit: 06/22/25 Hx Now: No Pain Present Currently: No Pain Scale Used: Victor-Sanchez/Numerical Pain scale:: 0 Smoking Status Smoking Status: Never smoker Immunizations Flu Vaccine in the Last 12 Months: Yes Date of most recent flu vaccination: 06/22/25 Flu Vaccine Exclusion Criteria: Already Received For Telemed visit only Telemed Video/Phone Visit: Yes Verbal consent obtained for Telemed visit?: Yes Verbal Consent witness name: HIMA BYRNES MA Telemed Video/Phone visit w/Clinical Staff: 11-20 min Policy Service Coordinator history Policy Service Coordinator History Menopausal: Yes Currently sexually active: Yes LOAN ADVISER: Past Medical History Past Medical History: Yes Hx Neurological Disorders, Yes Hx Breast Cancer (LEFT 2016), No Hx Cardiac Disorders, Yes Hx Hypertension, Yes Hx Cancer, No Hx Blood Disorders, Yes Hx Gastrointestinal Disorders, No Hx Renal Disease, No Hx Diabetes Mellitus Type 1, No Hx Diabetes Mellitus Type 2 and Yes Hx Tubal Ligation Questionnaires Covid-19 Vaccine Questionnaire Has patient been vacinated for Covid-19 Have you been vacinated for Covid-19: Yes PHQ-9 PHQ-2 Over the last 2 weeks, how often have you been bothered by any of the following problems? 1. Little interest or pleasure in doing things: not at all 2. Feeling down, depressed, or hopeless: not at all Total score: 0 PHQ-9 3. Trouble falling or staying asleep, or sleeping too much: Not at all 4. Feeling tired or having little energy: Not at all 5. Poor appetite or overeating: Not at all 6. Feeling bad about yourself - or that you are a failure or have let yourself or your family down: Not at all 7. Trouble concentrating on things, such as reading the newspaper or watching television: Not at all 8. Moving or speaking so slowly that other people could have noticed? - Or the opposite - being so fidgety or restless that you have been moving around a lot more than usual: not at all 9. Thoughts that you would be better off or of hurting yourself in some way: Not at all Total score: 0 If you checked off any problems, how difficult have these problems made it for you to do your work, take care of things at home, or get along with other people?: not difficult at all Source: Developed by Drs. Mikael Rosales, Ely Ordoñez, Yaron Gross and colleagues, with an educational ky from [employer]. Depression screen completed yes Social History Living Situation History Marital Status: Lives With: Family Housing: House Tobacco History Smoking Status: Never smoker Second Hand Smoke Exposure: No Alcohol History Alcohol Intake: Current Alcohol Intake Frequency: holidays/special occasions only Domestic Abuse History Do You Feel Safe at Home: Yes History of Present Illness HPI Narrative Leila Fitzpatrick presents for televisit with ongoing light bleeding following a recent endometrial biopsy. The patient reports she is still experiencing light bleeding. Biopsy results show endometrial polyp with no e/o malignancy Office Procedures OBC Clinic LOC & Office Proc's Nursing/Assessment Patient Status: Established Patient OB Clinic Nursing Assessment: Medication Reconciliation and Update PMH in EMR OB Clinic Coordination of Care: Complex Care and Chronic Disease 1-5, Education Complex Pt/Fam, Consent,records obtained, informed consent, Lab and Imaging orders, Results/Orders obtained and Staff clarify orders Established Patient Charge Established Patient Point Assignment: 95 Telehealth If patient is seen using Teleconference methods, complete New/Est section, but DO NOT fariha points only fariha the correct Telemed visit type Telemed Phone/Video with patient at home & ,PA,STEP DOWN SPECIALIST: Yes Telemed Phone/Video with patient in Clinic w/,STEP DOWN SPECIALIST,PA outside Clinic: Yes Assessment & Plan Diagnosis / Problem List (1) Postmenopausal bleeding: Status: Acute Plan Endometrial Polyp with Ongoing Bleeding: - Benign endometrial polyp identified on biopsy with finger-like growth from endometrium. - Light bleeding continues following endometrial biopsy procedure. - Biopsy results negative for malignancy. Plan: - Monitor bleeding for additional 2 weeks. - Perform hysteroscopy to evaluate for additional polyps if bleeding persists after 2 weeks. - Schedule follow-up appointment in 6 months to order repeat ultrasound. - Patient instructed to call if bleeding does not resolve. Advanced Care Planning Advance care planning discussed with:: patient
== END 2025-08-14 10:13 | disposition home or self-care (01) ==
LOC: HODSOBC 09:38
PROVIDERS: Supervising Provider Obstetrics & Gynecology; Visit Provider Obstetrics & Gynecology
DX: N95.0 Postmenopausal bleeding (principal); N84.0 Polyp of corpus uteri; I10 Essential (primary) hypertension; Z85.3 Personal history of malignant neoplasm of breast; Z79.899 Other long term (current) drug therapy; Z88.8 Allergy status to other drugs, medicaments and biological substances; Z91.040 Latex allergy status
CPT/HCPCS: 99212; Q3014; G0463

== ENCOUNTER → 2025-08-26 | Outpatient (CLI) | payer OTHER, MEDICAID, SELFPAY ==
--- NOTE | 2025-08-26 | XR_ITS ---
Examination: Venous duplex lower extremity sonogram, bilateral. Date and time of exam: August, 1149 eschars INDICATIONS: Bilateral leg cramping 5 years Technique: Multiple sonographic images of the deep venous system have been obtained. B-mode/2-D grayscale imaging of vascular structures and Doppler spectral analysis (waveforms) and color performed Both legs are examined. Findings: Deep venous systems do not demonstrate abnormal echogenicity. All visualized deep veins exhibit compressibility. All visualized deep veins exhibit augmentation. Impression: Negative for deep vein thrombosis
== END | disposition home or self-care (01) ==
PROVIDERS: PCP Family Medicine; Referring Provider Internal Medicine Hematology & Oncology; Visit Provider Internal Medicine Hematology & Oncology
DX: R25.2 Cramp and spasm (principal); C50.412 Malignant neoplasm of upper-outer quadrant of left female breast
CPT/HCPCS: 93970